=== PATIENT | male | born 1960 | race Caucasian/White ===

== ENCOUNTER → 2021-07-12 | Outpatient (CLI) | payer MEDICAID ==
[~2021-07-12] MED LIST: AMITRIPTYLINE H75 M2 PO; LISINOPRIL-HCT1 EAC1 PO; MELOXICAM15 MG PO; NEURONTIN800 MG PO; TIZANIDINE HCL4 M1 PO; TRAZODONE HCL100 MG PO
[2021-07-12 10:33] LABS: URINE BILIRUBIN NEGATIVE (Negative); URINE BLOOD NEGATIVE (Negative); URINE CLARITY CLEAR; URINE COLOR YELLOW; URINE GLUCOSE-RANDOM NEGATIVE (Negative); URINE KETONES NEGATIVE (Negative); URINE LEUKOCYTES-REFLEX NEGATIVE (Negative); URINE NITRITE-REFLEX NEGATIVE (Negative); URINE PROTEIN NEGATIVE (Negative); URINE SPECIFIC GRAVITY >= 1.030 (1.005-1.030); URINE UROBILINOGEN 0.2 E.U./dl (0.2-1.0)
[2021-07-12 10:36] LABS: ABSOLUTE BASOPHILS 0.1 thou/uL (0.0-0.2); ABSOLUTE LYMPHOCYTES 2.4 thou/uL (0.8-5.3); ABSOLUTE MONOCYTES 0.7 thou/uL (0.0-1.2); ABSOLUTE NEUTROPHILS 7.5 thou/uL (1.6-8.1); BASOPHILS 0.8 %; EOSINOPHILS 0.4 %; HEMATOCRIT 41.2 % (42.0-52.0); LYMPHOCYTES 22.5 %; MCH 28.3 pg (26.0-34.0); MCHC 34.1 g/dL (28.0-37.0); MCV 83.1 fL (80.0-100.0); MONOCYTES 6.7 %; MPV 7.5 fl. (7.2-11.1); NUCLEATED RBCS 0 /100WBC; PLATELET COUNT* 229 thou/uL (150-400); POLYS 69.6 %; RBC 4.96 mil/uL (4.50-6.00); RDW-CV 13.3 % (10.5-14.5); WBC 10.8 thou/uL (4.0-11.0)
[2021-07-12 10:48] LABS: PROTIME 10.2 Seconds (9.20-11.50)
[2021-07-12 10:56] LABS: ALBUMIN 4.1 g/dL (3.4-5.0); CALCIUM 8.8 mg/dL (8.5-10.1); CREATININE 1.2 mg/dL (0.6-1.3); POTASSIUM 4.2 mmol/L (3.5-5.1); TOTAL BILIRUBIN 0.4 mg/dL (<0.1-1.0); TOTAL PROTEIN 6.9 g/dL (6.4-8.2)
== END ==
LOC: M.LAB 08:38
PROVIDERS: ATTEND Orthopaedic Surgery Sports Medicine
DX: Z01.812 Encounter for preprocedural laboratory examination (principal)

== ENCOUNTER → 2021-07-18 | Outpatient (CLI) | payer MEDICAID | LOC: M.LAB 10:59 | PROVIDERS: ATTEND Orthopaedic Surgery Sports Medicine | DX: Z01.812 Encounter for preprocedural laboratory examination (principal); Z20.822 Contact with and (suspected) exposure to COVID-19 ==

== ENCOUNTER 2021-07-19 05:05 | Inpatient (IN) | payer MEDICAID ==
[~2021-07-19] VITALS: Ht 180.3 cm; Wt 120.2 kg
[2021-07-19 13:22] LABS: INR 1.1; PROTIME 10.9 Seconds (9.20-11.50)
[2021-07-19 20:00] VITALS: BP 123/73
[2021-07-20 01:44] VITALS: BP 110/65
[2021-07-20 04:00] VITALS: BP 120/74
[2021-07-20 05:24] LABS: HEMATOCRIT 37.2 % (42.0-52.0); HEMOGLOBIN 12.4 gm/dL (14.0-18.0)
[2021-07-20 05:35] LABS: PROTIME 10.3 Seconds (9.20-11.50)
[2021-07-20 08:01] VITALS: BP 102/64
--- NOTE | 2021-07-20 09:36 | NUR ---
Nutrition: Pt admitted with Rt knee DJD. H/o OBE, HTN, DJD. Consult received for surgical wound. Wt: 265#. Meds reviewed. Albumin is 4.1. Per chart review, surgery went well. No nutrition interventions needed at this time. Consider low risk.
--- NOTE | 2021-07-20 13:38 | NUR ---
CM completed assessment w/pt who indicated he lives home alone in an apt w/ "a few stairs" pt has a walker, cane, stool riser. pt is independent w/adls. pt has Hx with but cannot recall which agency used. pt would like outpatient therapy with "[facility]." Pt insurance will not qualify for PT via . SUAD discussed these options with pt and MD. both agreeable to outpatient therapy. suad contacted [facility] (formerly known as [facility] t regarding sending referral. [phone].
--- NOTE | 2021-07-20 14:55 | NUR ---
PT IS UP WITH GAIT BELT AND WALKER. PT ON RM AIR. PT TAKING PAIN MEDS FOR PAIN Q4 HOURS. PT IV WAS DC'D FOR DISCHARGE HOME. PT IS WAITING FOR DC IN WITH CALL LIGHT IN [place]ACH.
[2021-07-20 15:08] VITALS: BP 102/64
== END 2021-07-20 15:20 | disposition home or self-care (01) | DRG 470 ==
LOC: M.ORTHSURG 05:05 → M.2W 05:52 → M.TBA 05:52 → M.ORTHSURG 10:41 → M.2W 18:24
PROVIDERS: Orthopaedic Surgery Sports Medicine; ADMIT Internal Medicine; ATTEND Internal Medicine
PROC: 0SRC069 Replacement of Right Knee Joint with Oxidized Zirconium on Polyethylene Synthetic Substitute, Cemented, Open Approach (ICD-10-PCS; principal; 2021-07-19)
DX: M17.11 Unilateral primary osteoarthritis, right knee (principal); I10 Essential (primary) hypertension; E66.01 Morbid (severe) obesity due to excess calories; Z68.37 Body mass index [BMI] 37.0-37.9, adult